=== PATIENT | female | born 2000 | race Caucasian/White ===

== ENCOUNTER 2024-11-29 14:30 | Oncology outpatient (recurring) (ONCR) | payer BC, MEDICAID, SELFPAY | END 2024-12-09 23:59 | disposition home or self-care (01) | LOC: ONCMED 14:30 | PROVIDERS: Visit Provider Family Medicine | DX: O26.899 Other specified pregnancy related conditions, unspecified trimester (principal); Z79.899 Other long term (current) drug therapy | CPT/HCPCS: 96372; J2790 ==

== ENCOUNTER 2025-01-11 18:01 | Outpatient (CLI) | payer BC, MEDICAID, SELFPAY ==
[2025-01-11] VITALS (9 sets, daily range): BP systolic 119–136; BP diastolic 79–94; PULSE 89–107; RESP 16; TEMP 35.7–35.9; O2SAT 96; BMI 36.1
--- NOTE | 2025-01-11 18:24 | USR_ITS ---
PROCEDURE INFORMATION: Exam: US , Limited Exam date and time: 01/11/2025 6:35 PM Age: 24 years old Clinical indication: Antepartum complications; Other: Patient states leaking fluid; ; G4-p3-a0-l3 states leaking fluid at 36w 6d; Additional info: Placenta placement LABS AND CLINICAL REPORTS: Last menstrual period start date: 04/28/2024 Gestational age (Established): 36 w 6 d Estimated due date (Established): 02/02/2025 TECHNIQUE: Imaging protocol: Real-time ultrasound of the maternal uterus with image documentation. Exam focused on the clinical indication. COMPARISON: US OB >= 14 weeks fetus [id number] 10/03/2024 12:57 PM FINDINGS: Gestation: Single intrauterine gestation heart rate: 148 bpm presentation and position: Cephalic Placenta: Posterior and Fundal placenta without previa. Amniotic fluid (Qualitative): Amniotic fluid volume is normal. Amniotic fluid index: RAFAEL is 14.47 cm. Deepest pocket measures 4.4 cm. BIOMETRY: Gestational age (AUA): 36 w 6 d Estimated due date (AUA): 02/02/2025 MATERNAL: Cervix: Cervical length measures 4.1 cm. US/US OB limited [id number] IMPRESSION: Single intrauterine (reported 36 weeks 6 days) in the cephalic presentation with FHR 148 bpm. Posterior fundal placenta without previa. RAFAEL 14.47 cm with deepest pocket 4.4 cm.
== END 2025-01-11 20:38 | disposition home or self-care (01) ==
LOC: OPOB 18:03 → OBGYN 18:04
PROVIDERS: Visit Provider Family Medicine
DX: O26.899 Other specified pregnancy related conditions, unspecified trimester (principal); Z3A.00 Weeks of gestation of pregnancy not specified; N89.8 Other specified noninflammatory disorders of vagina
CPT/HCPCS: 76815; 84112; 99211

== ENCOUNTER 2025-01-19 20:30 | Outpatient (CLI) | payer BC, MEDICAID, SELFPAY ==
[2025-01-19] VITALS (10 sets, daily range): BP systolic 104–135; BP diastolic 56–87; PULSE 71–100; BMI 34.4
== END 2025-01-19 23:00 | disposition home or self-care (01) ==
LOC: OPOB 20:44 → OBGYN 20:44
PROVIDERS: Visit Provider Family Medicine
DX: O26.899 Other specified pregnancy related conditions, unspecified trimester (principal); Z3A.00 Weeks of gestation of pregnancy not specified; R10.9 Unspecified abdominal pain
CPT/HCPCS: 59025; 99211

== ENCOUNTER 2025-01-27 07:06 | Inpatient (IN) | payer BC, MEDICAID, SELFPAY ==
[2025-01-27] VITALS (71 sets, daily range): BP systolic 102–164; BP diastolic 56–102; PULSE 60–126; RESP 16–18; TEMP 37.3; O2SAT 96–100; BMI 35.0
[2025-01-27 08:01] LABS: Hematocrit 31.5 % (36-47); Hemoglobin 10.60 g/dL (11.27-16.99); Mean Corpuscular HGB Conc 33.7 g/dL (30-55); Mean Corpuscular Hemoglobin 31.1 pg (27-33); Mean Corpuscular Volume 92.4 fl (85-98); Nucleated Red Blood Cells % 0 %; Platelet Count 197 10^3/cmm (157-399); Red Blood Count 3.41 10^6/uL (3.85-5.65); White Blood Count 6.96 10^3/uL (3.29-11.43)
--- NOTE | 2025-01-27 09:10 | P.HP_ITS ---
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 Patient has had remarkable care with no significant complications. lab work was unremarkable. Patient denies any significant contractions today. Patient had an unchanged cervical exam performed in the office at last visit. Present Details : 4 Para: 3 Labs Rubella: Immune RPR: Negative GBS: Negative L&D/Induction Specific History Indication for induction OB: other Planned induction method: per misoprostol protocol Review of Systems 2 General: Reports: 10 or more systems reviewed and unremarkable except in HPI and below Medications/Allergies Home Medications ?Medication ?Instructions ?Recorded ?Confirmed ?Last Taken ?Type aspirin 81 mg tablet 81 mg PO DAILY 01/11/2501/0901/27/25 History prenat.vits,dillon,jnu-hhvb-rbbak 1 tab PO DAILY 01/11/25 01/27/25 01/27/25 History Allergies Allergy/AdvReac Type Severity Reaction Status Date / Time No Known Allergies Allergy Verified 01/19/25 21:59 Vitals/I&O/Wt Last Vital Signs Pulse 89 01/27/25 08:55 Resp 18 01/27/25 07:39 BP 111/73 01/27/25 08:55 Weight last 48 hrs Weight 81.42 kg Physical Exam 2 Const: COMMON NORMALS: no acute distress, patient oriented x3 and alert Resp: COMMON NORMALS: normal respiratory effort and No retractions Cardio: COMMON NORMALS: no JVD, regular rate and regular rhythm GI: OTHER: Gravid uterus Extremity: COMMON NORMALS: normal to inspection and no clubbing, cyanosis or edema Neuro: COMMON NORMALS: patient oriented x3, moves all extremities and no focal motor deficits Psych: COMMON NORMALS: mental status grossly normal and cooperative Data 01/27/25 07:45 Results Labs OB ([facility]): 2 Obstetrics 01/11/25 Blood Type A Negative Today Antibody Screen Pending Today Hct, (36-47) 31.5 % L Today Hgb, (11.27-16.99) 10.60 g/dL L Today Rho(D) Type Rh negative Today Plt Count, (157-399) 197 10^3/cmm Today A&P Assessment and plan 1. Term : 2. 39 weeks gestation of : Plan to proceed with elective induction of labor. Will start with Cytotec to help with cervical ripening. Will plan to proceed to place up to 3 doses. Otherwise, proceed with routine labor management. PDMP PDMP Reviewed: Not Reviewed Attestations 2 Medical Necessity Statement*: Patient admitted for induction of labor. Anticipate at least 1 midnight stay Coding Level of Care Code Acute Code for Chg Fwd Diagnoses Term Z34.90 39 weeks gestation of Z3A.39
[2025-01-27] MEDS: oxytocin 30 UNIT/500 ML BAG IV (15:00)
[2025-01-27] MEDS: ROPivacaine premix 200 MG/100 ML PREMIX 10 MG EPIDURAL (15:48)
--- NOTE | 2025-01-27 15:53 | ANES.PREANE2 ---
Pre-Anesthetic Assessment Height/Weight: Height 5 ft Weight 179 lb 8 oz Pulse Resp BP Pulse Ox O2 Del Method 101 H 18 113/74 99 Room Air 01/27/25 15:51 01/27/25 07:39 01/27/25 15:51 01/27/25 15:46 01/27/25 07:01 Preop Diagnosis: IUP Was Beta Arya taken within 24 hours: N/A Was Clonidine taken within 24 hours: N/A Social No alcohol and No tobacco Exam alert, oriented x 3, clear to auscultation bilaterally and regular rate & rhythm Airway Submandibular: within normal limits Cervical ROM: within normal limits Mallampati: Class II Dentition: full Anesthetic Plan ASA status: 2 Anesthesia: Regional (specify below) Other: G4, P3 here in active labor Denies any issues during Denies any cardiac or pulmonary issues Labs reviewed from today and acceptable for procedure Plan for routine epidural placement Medications/Allergies Home Medications ?Medication ?Instructions ?Recorded ?Confirmed ?Last Taken ?Type aspirin 81 mg tablet 81 mg PO DAILY 01/11/25 01/27/25 01/27/25 History prenat.vits,dillon,[id number]-uhpw-xhivu 1 tab PO DAILY 01/11/25 01/27/25 01/27/25 History Allergies Allergy/AdvReac Type Severity Reaction Status Date / Time No Known Allergies Allergy Verified 01/19/25 21:59 Current Medications Generic Name Dose Route Start Last Admin Trade Name Freq PRN Reason Stop Dose Admin Dextrose/Lactated Ringer's 1,000 mls @ 125 mls/hr 01/27/25 07:45 01/27/25 07:45 Dextrose 5%-Lactated Ringers IV Not Given .Q8H JHOAN Oxytocin 30 unit in 500 mls @ 1 mls/hr 01/27/25 14:15 01/27/25 15:15 Pitocin IV 2 milliunit/min .Q24H JHOAN 2 mls/hr Protocol Titration 1 MILLIUNIT/MIN Lactated Ringer's 1,000 mls @ 999 mls/hr 01/27/25 14:23 01/27/25 15:38 Lactated Ringers IV 999 mls/hr .Q1H1M PRN Administration See label comments Ropivacaine 200 mg in 100 mls @ 10 mls/hr 01/27/25 14:30 01/27/25 15:48 Naropin Premix EPIDURAL 10 mls/hr .Q10H JHOAN Administration PFSH Anesthesia Female Reproductive History : 4 Data Anesthesia 01/27/25 07:45 Short CBC 01/27/25 Range/Units 07:45 WBC 6.96 (3.29-11.43) 10^3/uL Hgb 10.60 L (11.27-16.99) g/dL Hct 31.5 L (36-47) % MCV 92.4 (85-98) fl Plt Count 197 (157-399) 10^3/cmm Neut % (Auto) 72.7 % Neut # (Auto) 5.06 (1.8-7.7) 10^3/uL Blood Bank 01/27/25 07:45 Blood Type A Negative Rho(D) Type Rh negative Antibody Screen Positive
--- NOTE | 2025-01-27 15:54 | P.ANES_ITS ---
Anesthesia Procedures Procedure/Date: 01/27/25 Epidural: Time Out Performed: Yes Consents Signed: Procedure Consent Consent: requested by attending/covering physician and from patient Lumbar Level: L3-L4 Epidural position: sitting Additional Comments: Initially CSC was performed, site was sterilely prepped with ChloraPrep, and 1% lidocaine was used to numb the skin. An 18-gauge epidural needle was then introduced until [id number] was was achieved around 7 cm to skin. A 27- gauge spinal needle was then introduced into the spinal canal. CSF return was achieved. 1 cc of 0.25% bupivacaine was then injected into the spinal canal. Epidural catheter was threaded and left at 15 cm to skin. Test dose was performed and was positive. Heart rate increased 20% and patient initially stated ringing in her ears that lasted around 10 seconds. Epidural catheter order was removed. Normal epidural was then placed a level above in a similar fashion without spinal portion. Patient tolerated procedure well. Test dose was negative. Epidural catheter was left at 15 cm to skin. Sterile dressing applied. Patient tolerated procedure well
--- NOTE | 2025-01-27 17:54 | PM.DELIVERY ---
Delivery Note: Date of delivery: January 27, 2025 Pre-delivery diagnoses: Term intrauterine Post-delivery diagnoses: Same, viable infant male Procedure: Spontaneous vaginal delivery Op report anesthesia: Epidural Estimated blood loss (mL): 300 Pre-Delivery Course: This is a 24-year-old -1-0-3 that presented today for induction of labor. The patient received 1 dose of Cytotec and then augmentation with Pitocin. Patient progressed as expected. The patient had spontaneous rupture of membranes around 1600 hrs. Delivery: Patient was completely dilated patient was placed into the normal lithotomy position where she started pushing with with 1 contraction. After the third pushed the patient delivered the 's head and nuchal cord was noted. The was delivered through the nuchal cord and placed into mother's abdomen. Bloody amniotic fluid was noted. The cord was then cut and clamped. Placenta was then delivered. Evidence of abrupting placenta was noted. Review of the perineum showed a superficial first-degree tear of the perineum that was repaired with 3-0 Vicryl. Some small amount of continued bleeding was noted so and her Cytotec was given rectally. At the end the procedure the uterus was firm and the bleeding had significantly subsided. Post-Delivery Status: Stable A&P Assessment and plan 1. Normal spontaneous vaginal delivery: Proceed with routine post care PDMP PDMP Reviewed: Not Reviewed Coding Level of Care Code Acute Code for Chg Fwd Diagnoses Normal spontaneous vaginal delivery O80
[2025-01-27] MEDS: benzocaine-menthol 78 gm Canister 1 SPRAY TOPICAL (20:30)
[2025-01-28 01:30] VITALS: BP 111/71; PULSE 88; RESP 16; TEMP 37; O2SAT 96
[2025-01-28] MEDS: PRENATAL VIT NO.130/IRON/FOLIC 1 EACH TABLET PO (05:51)
[2025-01-28 10:00] VITALS: BP 112/75; PULSE 76; RESP 16; TEMP 36.8; O2SAT 97
[2025-01-28 10:27] LABS: Hematocrit 33.1 % (36-47); Hemoglobin 11.00 g/dL (11.27-16.99); Mean Corpuscular HGB Conc 33.2 g/dL (30-55); Mean Corpuscular Hemoglobin 31.2 pg (27-33); Mean Corpuscular Volume 93.8 fl (85-98); Platelet Count 177 10^3/cmm (157-399); Red Blood Count 3.53 10^6/uL (3.85-5.65); White Blood Count 11.13 10^3/uL (3.29-11.43)
--- NOTE | 2025-01-28 11:25 | PM.OBGYDC ---
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 Normal spontaneous vaginal delivery: Reason for Visit Reason for Visit: IOL Brief History: This is a 24-year-old G4, P4 that presented at 39 weeks 1 day for induction of labor. Hospital Course Hospital Course The patient underwent induction of labor successfully and delivered vaginally a viable infant male without significant complications. care was unremarkable. Information Peripartum Data: Infant Delivery Method: Vaginal Laceration description: Perineal - 1st Degree Episiotomy description: None complications: none Physical Exam Const: COMMON NORMALS: no acute distress, patient oriented x3 and alert Neck/C-Spine: COMMON NORMALS: no JVD Resp: COMMON NORMALS: normal respiratory effort and No retractions Cardio: COMMON NORMALS: no JVD, regular rate and regular rhythm RATE: regular rate RHYTHM: regular rhythm GI: OTHER: Uterus firm and below umbilicus Extremity: COMMON NORMALS: normal to inspection and no clubbing, cyanosis or edema Neuro: COMMON NORMALS: patient oriented x3, moves all extremities and no focal motor deficits SENSORIUM/ORIENTATION: Yes alert Psych: COMMON NORMALS: mental status grossly normal and cooperative Urinary Catheter Management: Flores Latex: Cath Placed During This Visit: yes, but has since been removed by the nurse Reason for Continuing Indwelling Catheter: Decision to DC Catheter Urinary Catheter Date of Insertion: 01/27/25 Urinary Catheter Time of Insertion: 16:12 Date Urinary Catheter Removed: 01/27/25 Time Urinary Catheter Discontinued: 17:35 Discharge Data Studies Completed and Pending Laboratory Results WBC 11.13 10^3/uL (3.29-11.43) 01/28/25 06:00 RBC 3.53 10^6/uL (3.85-5.65) L 01/28/25 06:00 Hgb 11.00 g/dL (11.27-16.99) L 01/28/25 06:00 Hct 33.1 % (36-47) L 01/28/25 06:00 MCV 93.8 fl (85-98) 01/28/25 06:00 MCH 31.2 pg (27-33) 01/28/25 06:00 MCHC 33.2 g/dL (30-55) 01/28/25 06:00 RDW 13.9 % (12.1-15.1) 01/28/25 06:00 Plt Count 177 10^3/cmm (157-399) 01/28/25 06:00 MPV 11.2 fL (7.4-10.4) H 01/28/25 06:00 Neut % (Auto) 72.7 % 01/27/25 07:45 Lymph % (Auto) 17.5 % 01/27/25 07:45 [place] % (Auto) 8.2 % 01/27/25 07:45 Eos % (Auto) 0.9 % 01/27/25 07:45 Baso % (Auto) 0.1 % 01/27/25 07:45 Neut # (Auto) 5.06 10^3/uL (1.8-7.7) 01/27/25 07:45 Lymph # (Auto) 1.2 10^3/uL (0.8-4.8) 01/27/25 07:45 [place] # (Auto) 0.6 10^3/uL (0.2-0.9) 01/27/25 07:45 Eos # (Auto) 0.1 10^3/uL (0.0-0.8) 01/27/25 07:45 Baso # (Auto) 0.0 10^3/uL (0.0-0.1) 01/27/25 07:45 Nucleated RBC % (auto) 0 % 01/27/25 07:45 Nucleated RBCs # 0.0 /100WBC 01/27/25 07:45 Blood Type A Negative 01/27/25 07:45 Rho(D) Type Rh negative 01/27/25 07:45 Antibody Screen Positive 01/27/25 07:45 Antibody Identification Anti-D 01/27/25 07:45 Vitals Last Vital Signs Temp 98.2 F 01/28/25 10:00 Pulse 76 01/28/25 10:00 Resp 16 01/28/25 10:00 BP 112/75 01/28/25 10:00 Pulse Ox 97 01/28/25 10:00 O2 Del Method Room Air 01/28/25 10:00 Results Labs OB ([facility]): Obstetrics US 01/11/25 Blood Type A Negative 01/27/25 Antibody Screen Positive 01/27/25 Hct, (36-47) 33.1 % L 01/28/25 Hgb, (11.27-16.99) 11.00 g/dL L 01/28/25 Rho(D) Type Rh negative 01/27/25 Plt Count, (157-399) 177 10^3/cmm 01/28/25 Discharge Plan Discharge Patient Disposition: Home Condition: Stable Prescriptions: Continued prenat.vits,dillon,[id number] Tablet 1 tab PO DAILY Discontinued aspirin 81 mg Tablet 81 mg PO DAILY Discharge Order = DC NOW: Discharge Order (Routine); Ordered 01/28/25 Ordered By: Diaz Rooney Referrals: Diaz Rooney MD [Primary Care Provider, [facility]] - 02/27/25 8:00 am Discharge Diet: Usual diet Discharge Activity: Limit activity as instructed Patient Instructions: Depression (DC), Opioid Safety (DC), Preeclampsia and Eclampsia After Delivery (GEN), Hemorrhage (DC), OB Discharge Report, OB Food/Drug Interaction Guide, Opioid Safety, OB Home Care, OB Vaginal Deliveries - [facility], Patient Portal & Herb Instructions, Abnormal Bleeding 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
--- NOTE | 2025-01-28 14:02 | ANE.PACU2 ---
Inpatient post-anesthesia follow up: Airway intact: Yes Vital signs: Temperature 98.6 F Pulse Rate 80 Respiratory Rate 16 Blood Pressure 122/88 Pulse Oximetry 98 Oxygen Delivery Me thod Room Air Oxygen Flow Rate Fraction of Inspir ed Oxygen Hydration adequate: Yes Nausea and vomiting: No Pain level: 1 Mental status: Baseline Epidural Start/End: Epidural Start Date: 01/27/25 Epidural Start Time: 15:35 Epidural End Date: 01/27/25 Epidural End Time: 18:50
[2025-01-28 18:44] VITALS: BP 122/88; PULSE 80; RESP 16; TEMP 37; O2SAT 98
[2025-01-28 18:52] VITALS: BP 122/88; PULSE 80; RESP 16; TEMP 37; O2SAT 98
== END 2025-01-28 19:00 | disposition home or self-care (01) | DRG 560 ==
LOC: OBGYN 07:07
PROVIDERS: Admitting Provider Family Medicine; PCP Family Medicine; Visit Provider Family Medicine
DX: O69.81X0 Labor and delivery complicated by cord around neck, without compression, not applicable or unspecified (principal); O45.93 Premature separation of placenta, unspecified, third trimester; O70.0 First degree perineal laceration during delivery; Z3A.39 39 weeks gestation of pregnancy; Z37.0 Single live birth
CPT/HCPCS: 36415; 51702; 59409; 80503; 85025; 85027; 86850; 86870; 86900; J2590; J2795; J7120; J7121; J9999